=== PATIENT | male | born 1950 | race Caucasian/White ===

== ENCOUNTER → 2020-12-08 | Outpatient (CLI) | payer MEDICARE ==
--- NOTE | 2020-12-08 12:54 | RAD ---
XR LUMBAR SPINE 4+V 12/08/2020 9:55 AM Indication: Low back and left flank pain COMPARISON: None available TECHNIQUE: 6 views of the lumbar spine are provided. Findings: Sagittal alignment of the lumbar spine is normal. Minimal levoconvex curvature of the lumbar spine wi th apex levocurvature at L2-L3. There are 5 lumbar type vertebral bodies with partial sacralization o f L5 vertebral body. Vertebral body heights are maintained. No acute fracture is identified. Mild disc height loss at L5-S1. No significant endplate degenerative changes are identified. Moderate facet arthropathy. No significant osseous neuroforaminal stenosis or spinal canal stenosis. Nonobstructive bowel gas pattern. Visualized portions of the sacrum appear intact. Impression: No acute fracture or sagittal malalignment of the lumbar spine. Mild lumbar spondylosis. Electronically signed by: Sammie Moses MD (12/08/2020 12:52 PM) [id number]
== END ==
LOC: RAD 09:48
PROVIDERS: ATTEND Internal Medicine
DX: M47.816 Spondylosis without myelopathy or radiculopathy, lumbar region (principal); M43.8X6 Other specified deforming dorsopathies, lumbar region
CPT/HCPCS: 72110

== ENCOUNTER → 2021-08-03 | Outpatient (CLI) | payer MEDICARE ==
--- NOTE | 2021-08-03 09:36 | RAD ---
EXAM: Chest, 2 views. HISTORY: Hemoptysis. COMPARISON: None. FINDINGS: 2 views the chest are obtained. There is multifocal bilateral interstitial infiltrate. Ther e is no pleural effusion or pneumothorax. The heart is normal in size. IMPRESSION: Multifocal bilateral interstitial infiltrate. Follow-up to confirm resolution. Electronically signed by: Steffany Etienne MD (08/03/2021 9:33 AM) [id number]
== END ==
LOC: RAD 09:17
PROVIDERS: ATTEND Internal Medicine
DX: R04.2 Hemoptysis (principal); U07.1 COVID-19; J12.82 Pneumonia due to coronavirus disease 2019
CPT/HCPCS: 71046